=== PATIENT | male | born 1990 | race Caucasian/White ===

== ENCOUNTER 2019-05-05 11:28 | Emergency (ER) | payer OTHER, SELFPAY ==
--- NOTE | 2019-05-05 11:35 | ED.GENADULT ---
HPI - General Adult General Chief complaint: Extremity Problem,Nontraumatic Stated complaint: Left foot/gout Time Seen by Provider: 05/05/19 11:42 Source: patient Mode of arrival: ambulatory Limitations: no limitations History of Present Illness HPI narrative: 28-year-old male patient [facility] with complaints of left foot and ankle pain for the past 2 days. Patient states he does have a history of gout and states he does feel like this is a gout flareup. Patient states he does typically take allopurinol daily but is currently out. Patient states he has taken prednisone and colchicine in the past for a gout flareup which has helped. Patient states he has currently moved to the area and does not have a current primary doctor in this area as of right now. Related Data Allergies Allergy/AdvReac Type Severity Reaction Status Date / Time No Known Allergies Allergy Mild Unverified 09/12/09 18:09 Review of Systems Review of Systems: Narrative: CONSTITUTIONAL: Denies fever, chills, or sweats. EYES: Denies visual changes, redness, or discharge. ENT: Denies rhinorrhea, congestion, sore throat, or otalgia. CARDIOVASCULAR: Denies chest pain, palpitations, or edema. RESPIRATORY: Denies cough or dyspnea. GASTROINTESTINAL: Denies abdominal pain, nausea, vomiting, or diarrhea. GENITOURINARY: Denies dysuria or hematuria. SKIN: Denies rash or itching. MUSCULOSKELETAL: Denies back pain, joint pain, or myalgia. Positive left ankle and foot pain x2 days NEUROLOGIC: Denies headache, numbness, or weakness. PSYCHIATRIC: Denies anxiety or depression. PMFSH Comments At the time of my signature I agree with nursing past medical history, surgical, social, and family history. There is no relevant family history pertinent to the presenting complaint. Exam Narrative: Exam Narrative: GENERAL: Well-appearing, well-nourished, and in no acute distress. HEAD: Normocephalic, atraumatic. EYES: PERRLA and EOMI. ENT: Nares clear, no rhinorrhea or epistaxis. Mucous membranes moist. NECK: Supple. No lymphadenopathy CHEST: Clear to auscultation. No respiratory distress. HEART: Regular rate and rhythm. No murmur heard. Normal peripheral pulses. ABDOMEN: Soft, nontender, nondistended, normal active bowel sounds. EXTREMITIES: Patient able to bear weight and ambulate without pain. No surface trauma, ecchymosis, erythema, lesions, ulcers or break in skin integrity. The L foot is without obvious asymmetry or deformity when compared to the R foot. No bony step-off, nontender to palpation over the toes, midfoot or hindfoot or sole. Normal plantar/dorsiflexion, inversion/eversion. Distal motor and neurovascular status are intact SKIN: Warm, dry, no rash. NEURO: No focal deficits. Alert and oriented x3. Course Vital Signs Vital signs: Vital Signs Temperature 36.4 C L 05/05/19 11:39 Pulse Rate 88 05/05/19 11:39 Respiratory Rate 16 05/05/19 11:39 Blood Pressure 137/89 05/05/19 11:39 Pulse Oximetry 100 05/05/19 11:39 Temperature 36.4 C L 05/05/19 11:39 Pulse Rate 88 05/05/19 11:39 Respiratory Rate 16 05/05/19 11:39 Blood Pressure 137/89 05/05/19 11:39 Pulse Oximetry 100 05/05/19 11:39 Vital signs reviewed. Medical Decision Making Differential Diagnosis Differential Diagnosis: Differential diagnosis: Foot fracture, crush injury, compartment syndrome, contusion, sprain, tendinitis,lisfranc sprain or fracture, avulsion fracture, grown toenail, diabetic ulcer. Discussed with patient we will go ahead and give him some colchicine for the gout flareup today and he can also take ibuprofen as needed for the pain. Discussed with patient that he will need to follow-up with his primary doctor or call around to be established with a new primary doctor for further evaluation and treatment of the gout. Patient verbalized understanding denies any other questions or concerns at this time. Vital Signs Vital Signs: Vital Signs Temper
[2019-05-05 11:39] VITALS: BP 137/89; PULSE 88; RESP 16; TEMP 36.4; O2SAT 100
== END 2019-05-05 11:52 | disposition home or self-care (01) ==
PROVIDERS: Emergency Provider Nurse Practitioner Family
DX: M10.9 Gout, unspecified (principal)
CPT/HCPCS: 99203; G0463